=== PATIENT | female | born 1975 | race Caucasian/White ===

== ENCOUNTER 2023-02-10 18:09 | Emergency (ER) | payer OTHER, SELFPAY ==
[2023-02-10 18:09] VITALS: BP 181/97; PULSE 91; RESP 16; TEMP 36.4; O2SAT 97; BMI 33.5
[2023-02-10 18:31] VITALS: BP 191/94; PULSE 97; O2SAT 96
--- NOTE | 2023-02-10 18:33 | PC.NURSE ---
ER at bedside
--- NOTE | 2023-02-10 18:37 | HMH.EDGENADL ---
Discharge Plan Disposition Patient Disposition: Admitted Condition: Fair Chief Complaint: Abdominal Pain Clinical Impressions Clinical Impression: Calculous cholecystitis Discharge ED Provider: Beck Ruby General Adult HPI General Chief complaint: Abdominal Pain Stated complaint: N/V/D Time Seen by Provider: 02/10/23 18:10 Mode of Arrival: EMS Source of Information: Patient and EMS Limitations: No Limitations Description of Symptoms (Recalled from ER Triage Doc. by RN): 47 yo F presents to ED via EMS for nausea, vomitting, right sided abdominal pain. pt reports n/v began this am around 0700. pt states that abdominal pain began around 1000. History of Present Illness HPI narrative: This is a 47-year-old white female with history of gallbladder disease who presents with right upper quadrant pain radiating through the back that began this morning. The pain was accompanied by nausea and vomiting no fevers or chills no diarrhea no chest pain or shortness of breath. Patient states it feels like one of her gallbladder attacks. Related Data Allergies Allergy/AdvReac Type Severity Reaction Status Date / Time bupropion [From Wellbutrin] Allergy Verified 02/10/23 18:25 topiramate [From Topamax] Allergy Verified 02/10/23 18:25 [facility] Disclaimer: The information contained in this section may have been updated after the patient was seen, as this information can be updated by other users. Social History (Updated 02/10/23 @ 18:26 by Domingo Ness RN) Smoking Status: Current every day smoker alcohol intake: never current occupational status: unemployed Travel in the last 8 weeks: None ROS Obtained: Yes All systems reviewed & no additional complaints except as documented Skin no rash or lesions HEENT no runny nose sore throat Pulmonary no cough or shortness of breath Cardiovascular no chest pain pressure heaviness GI see HPI no dysuria pyuria hematuria Musculoskeletal no neck or back pain Endocrine no polydipsia polyuria or polyphasia Psych no SI or HI The rest of the systems were reviewed and found to be negative Physical Exam Narrative Physical exam: Skin: Warm and dry HEENT: Normocephalic atraumatic extract muscles are intact pupils are equal and reactive to light Neck: Supple nontender Lungs: Clear to auscultation Heart: Regular rate and rhythm Abdomen: NABS soft with right upper quadrant tenderness no guarding or rebound Extremities: No clubbing cyanosis or edema Neurologic: No unilateral weakness or numbness Lymphatic: No cervical or inguinal adenopathy Musculoskeletal: No tenderness of the dorsal or lumbar spine Psych: No SI or HI General General appearance: alert Respiratory Respiratory exam: Present normal lung sounds bilaterally Cardiovascular Cardiovascular exam: Present regular rate Neurological Exam Neurological exam: Present alert and oriented X3 Medical Decision Making Andrew Inquiry Pt receiving controlled substance: No Vital Signs: 02/10/23 18:09 02/10/23 18:31 Temperature 97.5 F L Temperature Source Oral Pulse Rate 97 H Pulse Rate [Left] 91 H Respiratory Rate 16 Blood Pressure 191/94 H Blood Pressure [Right Arm] 181/97 H Blood Pressure Mean 126 Blood Pressure Mean [Right Arm] 125 02 Sat by Pulse Oximetry 97 96 Oxygen Delivery Method Room Air Lab Data Lab Results 02/10/23 18:05: WBC 17.3 H, RBC 5.45 H, Hgb 16.5 H, Hct 51.4 H, MCV 94.3, MCH 30.3, MCHC 32.2, RDW 14.1, Plt Count 351, MPV 8.4, Neut % (Auto) 84.8 H, Lymph % (Auto) 11.3, [place] % (Auto) 3.1, Eos % (Auto) 0.5, Baso % (Auto) 0.3, Neut # (Auto) 14.7 H, Lymph # (Auto) 2.0, [place] # (Auto) 0.5, Eos # (Auto) 0.1, Baso # (Auto) 0.1, Total Counted 100, Neutrophils % (Manual) 88 H, Lymphocytes % (Manual) 11, Monocytes % (Manual) 1 L, Platelet Estimate Normal, RBC Morphology Normal 02/10/23 18:05: Sodium 136, Potassium 3.8, Chloride 104, Carbon Dioxide 23, Anion Gap 12.8, BUN 5 L, Creatinine 0.60, Terri
[2023-02-10 18:39] LABS: Basophils # 0.1 K/mm3 (0-0.2); Basophils % 0.3 % (0.1-2.0); Eosinophils # 0.1 K/mm3 (0.0-0.4); Eosinophils % 0.5 % (0.1-12.0); Hematocrit 51.4 % (37.0-47.0); Hemoglobin 16.5 g/dL (12.2-16.2); Lymphocytes % 11.3 % (10-50); Mean Corpuscular HGB Conc 32.2 g/dL (31.8-35.4); Mean Corpuscular Hemoglobin 30.3 pg (27.0-31.2); Mean Corpuscular Volume 94.3 fl (81-99); Mean Platelet Volume 8.4 fl (7.4-10.4); Monocytes # 0.5 K/mm3 (0.1-1.0); Monocytes % 3.1 % (1.7-9.3); Neutrophils # 14.7 K/mm3 (1.8-7.8); Neutrophils % 84.8 % (37.0-80.0); Platelet Count 351 K/mm3 (142-424); Red Blood Count 5.45 M/mm3 (4.20-5.40); Red Cell Distribution Width 14.1 % (11.5-17.5); White Blood Count 17.3 K/mm3 (4.8-10.8)
[2023-02-10 18:41] LABS: Chloride 104 mmol/L (98-107); Potassium 3.8 mmoL/L (3.5-5.1); Sodium 136 mmol/L (136-145)
[2023-02-10 18:43] LABS: Blood Urea Nitrogen 5 mg/dl (7-17); Creatinine Clearance Estimated 165 mL/min (50-200); Estimated Glomerular Filt Rate 108 ml/min (>60); GFR (African American) 131 ML/MIN (>60); MANUAL DIFFERENTIAL MANUAL DIFFERENTIAL (MANUAL DIFF)
[2023-02-10 18:44] LABS: Alanine Aminotransferase 30 U/L (12-78); Albumin Level 4.1 g/dl (3.5-5.0); Albumin/Globulin Ratio 1.1 (1.1-1.8); Alkaline Phosphatase 106 U/L (38-126); Anion Gap 12.8 mEq/L (5-15); Aspartate Amino Transferase 36 U/L (14-36); Bilirubin,Total 0.4 mg/dl (0.2-1.3); Calcium 9.3 mg/dl (8.4-10.2); Carbon Dioxide 23 mmol/L (22.0-30.0); Globulin 3.6 g/dL (1.3-3.2); Glucose 148 mg/dl (74-100); Total Protein,Serum 7.7 g/dl (6.3-8.2)
[2023-02-10 18:50] LABS: HCG Qualitative, Serum Negative (Negative)
[2023-02-10 18:51] LABS: Lipase 53 U/L (23-300)
[2023-02-10 18:58] LABS: Lymphocytes % 11 % (10-50); Monocytes % 1 % (2-9); Neutrophils % 88 % (42-76); Platelet Estimate Normal; RBC Morphology Normal; Total Cells Counted 100
--- NOTE | 2023-02-10 19:02 | CT_ITS ---
PROCEDURE INFORMATION: Exam: CT Abdomen And Pelvis With Contrast Exam date and time: 02/10/2023 7:15 PM Age: 47 years old Clinical indication: Abdominal pain; Other: Ruq; Additional info: Ruq pain that radiates to back TECHNIQUE: Imaging protocol: Computed tomography of the abdomen and pelvis with contrast. Radiation optimization: All CT scans at this facility use at least one of these dose optimization techniques: automated exposure control; mA and/or kV adjustment per patient size (includes targeted exams where dose is matched to clinical indication); or iterative reconstruction. Contrast material: ISOVUE; Contrast volume: 75 ml; Contrast route: IV; REPORTING DATA: Count of CT and Cardiac NM exams in prior 12 months: This patient has received 0 known CTs and 0 known cardiac nuclear medicine studies in the 12 months prior to the current study. COMPARISON: No relevant prior studies available. FINDINGS: Lungs: Mild scarring and atelectasis in the lower lungs. Liver: Normal. No mass. Gallbladder and bile ducts: There is a 5 mm stone in the common duct in the pancreatic head on image 45 series 3. Dilated gallbladder with multiple small gallstones. Gallbladder wall thickening. Pancreas: See Gallbladder and bile ducts finding. Spleen: Normal. No splenomegaly. Adrenal glands: Normal. No mass. Kidneys and ureters: Low attenuation renal lesions measuring up to 1.6 cm in diameter are incompletely characterized, but are likely cysts. No followup imaging is warranted. Stomach and bowel: Fatty infiltration of the colon wall is a nonspecific finding that can correlate with chronic inflammation. Appendix: Unremarkable appendix. Intraperitoneal space: Unremarkable. No free air. No significant fluid collection. Vasculature: The arteries demonstrate moderate atherosclerotic disease. Lymph nodes: Unremarkable. No enlarged lymph nodes. Urinary bladder: Unremarkable as visualized. Reproductive: Status post bilateral tubal ligation. Bones/joints: Unremarkable. No acute fracture. Soft tissues: Tiny fat containing umbilical hernia. Other findings: Stigmata of old granulomatous disease. IMPRESSION: 1. There is a 5 mm stone in the common duct in the pancreatic head on image 45 series 3. Please correlate for evidence of biliary obstruction and/or ascending cholangitis. 2. Dilated gallbladder with multiple small gallstones. Gallbladder wall thickening. Acute cholecystitis is possible in the appropriate clinical setting. 3. The arteries demonstrate moderate atherosclerotic disease. This is advanced for the patient's age. COMMENTS: Consistent with the [employer]'s Incidental Findings Committee white paper (J Am Annamaria Radiol 2018): Any incidental renal lesion less than 1 cm or classified as too small to characterize, or any incidental cystic renal lesion characterized as simple-appearing, is likely benign. No follow-up imaging is recommended for these lesions per consensus recommendations based on imaging criteria.
--- NOTE | 2023-02-10 19:36 | PC.NURSE ---
LANCE BOSTON on phone with dr ramsey
[2023-02-10 19:53] LABS: Coronavirus 19, PCR Not Detected (NotDetected); Influenza A, PCR Not Detected (NotDetected); Influenza B, PCR Not Detected (NotDetected)
[2023-02-10 20:10] VITALS: BP 187/100; PULSE 94; RESP 16; TEMP 36.4; O2SAT 97
--- NOTE | 2023-02-10 20:11 | PC.NURSE ---
pt and pt's was explained risks and consequences of signing out AMA.
== END 2023-02-10 20:12 | disposition left against medical advice (07) ==
PROVIDERS: Emergency Provider Emergency Medicine; PCP Family Medicine
DX: K80.01 Calculus of gallbladder with acute cholecystitis with obstruction (principal); F17.200 Nicotine dependence, unspecified, uncomplicated; R10.11 Right upper quadrant pain; R11.2 Nausea with vomiting, unspecified
CPT/HCPCS: 74177; 80053; 83690; 84703; 85007; 85025; 87636; 96365; 96375; 99285; C9803; J2405; J2543; Q9967; U0003; U0005

== ENCOUNTER 2023-03-07 07:56 | Inpatient (IN) | payer OTHER, SELFPAY ==
[2023-03-07] VITALS (28 sets, daily range): BP systolic 83–145; BP diastolic 46–93; PULSE 66–100; RESP 16–20; TEMP 36.4–36.8; O2SAT 91–99; BMI 35.0; BMI 29.9; BMI 38.0
--- NOTE | 2023-03-07 07:52 | PC.NURSE ---
Dr. Bass at BS
--- NOTE | 2023-03-07 07:52 | ECG_ITS ---
APPROVED REPORT Exam: Resting ECG HR:91 bpm ECG Measurements Heart Rate 91 AXES SD 162 P 69 QRSd 88 QRS 104 QT 326 T 92 QTc 374 Conclusion SINUS RHYTHM POSSIBLE LEFT ATRIAL ENLARGEMENT [-0.1mV P-WAVE IN V1/V2] RIGHT AXIS DEVIATION [QRS AXIS > 100] ST ELEVATION, CONSIDER INFERIOR INJURY [MARKED ST ELEVATION W/O NORMALLY INFLECTED T-WAVE IN II/aVF] ACUTE OR UNCONFIRMED REPORT Electronically signed by : Clinton Rodrigues MD 03/07/2023 19:23:34
--- NOTE | 2023-03-07 08:01 | PC.NURSE ---
Dr. Bass speaking with Dr Bui, Hospitalist
--- NOTE | 2023-03-07 08:05 | XR_ITS ---
PROCEDURE INFORMATION: Exam: XR Chest Exam date and time: 03/07/2023 8:07 AM Age: 47 years old Clinical indication: Shortness of breath; Patient HX: SOA, tightness w cp lt sided x 1 day, smoker, dx w copd; Additional info: Stemi TECHNIQUE: Imaging protocol: Radiologic exam of the chest. Views: 1 view. COMPARISON: CT ABDOMEN PELVIS W CON 02/10/2023 7:15 PM FINDINGS: Lungs: Relatively lucent lung in the left upper lobe consistent with emphysematous changes. Opacity in the right base may represent atelectasis or pneumonia.. Pleural spaces: Unremarkable. No pleural effusion. No pneumothorax. Heart/Mediastinum: Unremarkable. No cardiomegaly. Bones/joints: Unremarkable. IMPRESSION: 1. Relatively lucent lung in the left upper lobe consistent with emphysematous changes. 2. Opacity in the right base may represent atelectasis or pneumonia..
--- NOTE | 2023-03-07 08:06 | HMH.EDGENADL ---
Discharge Plan Disposition Patient Disposition: Admitted Condition: Serious Chief Complaint: Chest Pain Clinical Impressions Clinical Impression: ST elevation (STEMI) myocardial infarction involving right coronary artery Discharge ED Provider: Matt Bass General Adult HPI General Chief complaint: Chest Pain Stated complaint: CHEST PAIN Time Seen by Provider: 03/07/23 08:00 Mode of Arrival: EMS Source of Information: Patient and EMS Limitations: No Limitations History of Present Illness HPI narrative: This is a 47-year-old female with no relevant medical history presenting with chest pain. Patient states that she was recently discharged from the hospital after cholecystectomy on 02/11. Since that time, she has had abnormal sleep schedule. She was awake it over 0300 today, 03/07 when she had an acute burning sensation in her left substernal area. Currently 7 out of 10 and nonradiating after aspirin and nitroglycerin. Burning went to her left upper extremity, cause left upper extremity to go numb. Patient was diaphoretic, vomiting, weak and short of breath. This lasted for a handful of hours. Called her daughter who convinced her to come to the ER. EMS was called. Transported patient to the ED out of concern for STEMI. Patient received 324 mg aspirin and nitroglycerin on the way to [facility]. Related Data Allergies Allergy/AdvReac Type Severity Reaction Status Date / Time bupropion [From Wellbutrin] Allergy Verified 03/07/23 08:06 topiramate [From Topamax] Allergy Verified 03/07/23 08:06 [facility] Disclaimer: The information contained in this section may have been updated after the patient was seen, as this information can be updated by other users. Social History (Updated 02/10/23 @ 18:26 by Domingo Ness RN) Smoking Status: Current every day smoker alcohol intake: never current occupational status: unemployed Travel in the last 8 weeks: None ROS Obtained: Yes All systems reviewed & no additional complaints except as documented Physical Exam General General appearance: alert, anxious, lethargic and obtunded Head Head exam: atraumatic and normocephalic Chest Chest inspection: Present normal inspection and symmetric chest wall rise Respiratory Respiratory exam: Present normal lung sounds bilaterally and wheezes; Absent respiratory distress, stridor or accessory muscle use Cardiovascular Cardiovascular exam: Present regular rate and normal rhythm Abdominal Exam Abdominal exam: Present soft and tenderness (around incision sites, incision site bandages clean, dry, intact. No evidence of infection underlying bandages, but dressings appear old) Neurological Exam Neurological exam: Present alert, oriented X3, CN II-XII intact and normal gait; Absent motor sensory deficit Medical Decision Making Medical Records Medical records reviewed: Yes I reviewed the patient's medical records. Andrew Inquiry Pt receiving controlled substance: No Andrew was queried for this patient: No Vital Signs: 03/07/23 08:08 03/07/23 08:28 03/07/23 08:28 Temperature 97.8 F Pulse Rate 98 H 100 H Pulse Rate [Right Brachial] 100 H Respiratory Rate 20 20 Blood Pressure 143/91 H Blood Pressure [Left Arm] Blood Pressure [Right Arm] 142/93 H Blood Pressure Mean [Left Arm] Blood Pressure Mean [Right Arm] 109 Blood Pressure Source Automatic Cuff Blood Pressure Source [Left Arm] Blood Pressure Source [Right Arm] Automatic Cuff Blood Pressure Position Sitting Blood Pressure Position [Left Arm] Blood Pressure Position [Right Arm] Sitting 02 Sat by Pulse Oximetry 96 Oxygen Delivery Method Room Air Room Air Oxygen Flow Rate (LPM) 03/07/23 09:00 Temperature Pulse Rate 67 Pulse Rate [Right Brachial] 68 Respiratory Rate 18 Blood Pressure Blood Pressure [Left Arm] 83/46 L Blood Pressure [Right Arm] Blood Pressure Mean [Left Arm] 58 Blood Pressure Mean [Ri
--- NOTE | 2023-03-07 08:18 | IR_ITS ---
APPROVED REPORT Patient Location: Emergent Investigation Specialist: MARGO Oliver RT (R) PROCEDURES Selective coronary angiogram Mechanical thrombectomy to the right coronary Drug-eluting stent deployment to the mid and distal dominant right coronary INDICATION Acute inferolateral ST elevation myocardial infarction, Large thrombus burden, Coronary artery disease Informed consent was obtained prior to the procedure. COMPLICATIONS None Estimated Blood Loss: Less than10 mls TECHNIQUE One percent lidocaine used to anesthetize the right anterior aspect of the wrist. The right radial artery was accessed via the Seldinger technique. A 6 [place] sheath was placed in the right radial artery. 150 mg magnesium sulfate, 800 mcg of nitroglycerin, 1mg Lidocaine and 5000 U Heparin were given through the arterial sheath. The papa catheter was also used to perform selective coronary angiography. Guide catheter was placed in the right coronary artery which demonstrated occluded right coronary artery. A Choice PT extra-support wire was placed distally and a penumbra mechanical thrombectomy catheter was advanced and a large thrombus was aspirated. This restored KODY-3 flow. A 3.5 x 38 mm [place] frontier stent was placed in the mid to distal right coronary artery at 14 [place]. An additional 3 mm x 15 mm [place] frontier stent was placed distal to the for stent yet still overlapping the stent and deployed at 18 [place]. The balloon was brought back and deployed at 24 [place] to post dilate. At the end of the procedure left coronary artery angiography was performed. The apparatus was removed the sheath was removed good hemostasis was achieved using TR banding patient was transferred to the postop putting in stable condition ANGIOGRAPHIC RESULTS The left main artery Normal The left anterior descending artery Proximally normal with mid vessel 20 to 30% stenosis The circumflex artery Small nondominant and gives rise to a small to medium sized first obtuse marginal artery 2 mm in diameter with a proximal eccentric 80 to 90% stenosis The right coronary artery Large dominant vessel and initially occluded in the proximal to mid segment. Following mechanical thrombectomy and stenting the right coronary was widely patent with inline flow into the distal segment. Distal to the stent there is a 20% stenosis transitioning into the posterior descending artery. The DAUGHERTY ventriculogram reveals Not performed The left ventricular end-diastolic pressure Not measured IMPRESSION Acute ST elevation myocardial infarction involving the proximal to mid dominant right coronary artery with successful mechanical thrombectomy followed by drug-eluting stenting to the proximal mid and distal right coronary contiguous manner Persistent severe stenosis in a small to moderate sized 2 mm obtuse marginal artery PLAN 1. Brilinta 90 twice daily plus aspirin 81 mg daily 2. LDL goal of 55 to be achieved with high intensity statin 3. Supportive care 4. Avoidance of tobacco products 5. Continuous telemetry monitoring for at least the next 48 hours 6. Echocardiogram Thursday 7. QUIQUE inhibitors and beta-blockers once hemodynamically stable 8. At this time I would like to treat the obtuse marginal artery medically. There are no plans to revascularize this vessel and less patient develops recurrent angina pectoris Electronically signed by : Mayito Downey MD 03/07/2023 09:07:38
[2023-03-07 08:20] LABS: Basophils % 0.3 % (0.1-2.0); Eosinophils # 0.1 K/mm3 (0.0-0.4); Eosinophils % 0.8 % (0.1-12.0); Hematocrit 50.5 % (37.0-47.0); Lymphocytes # 2.1 K/mm3 (0.7-4.5); Lymphocytes % 15.1 % (10-50); Mean Corpuscular HGB Conc 31.7 g/dL (31.8-35.4); Mean Corpuscular Hemoglobin 29.8 pg (27.0-31.2); Mean Corpuscular Volume 93.9 fl (81-99); Mean Platelet Volume 8.1 fl (7.4-10.4); Monocytes # 0.6 K/mm3 (0.1-1.0); Monocytes % 4.3 % (1.7-9.3); Neutrophils % 79.5 % (37.0-80.0); Platelet Count 356 K/mm3 (142-424); Red Blood Count 5.38 M/mm3 (4.20-5.40); Red Cell Distribution Width 13.8 % (11.5-17.5); White Blood Count 13.9 K/mm3 (4.8-10.8)
--- NOTE | 2023-03-07 08:36 | EXP.HP ---
History of Present Illness *Admission Date: 03/07/23 *Reason for visit:: Chest pain *History of present illness: Ms. Phelps is a 47-year-old female with chronic back pain, obesity, daily smoker, with recent gallbladder removal 3 weeks ago who presented to the ER with onset of chest pain this morning. Patient states that she was recently discharged from the hospital after cholecystectomy on 02/11. Since then she has noticed difficulty with her bowels, increased loose stool. Also not sleeping regularly. States she woke up this morning when she noted a burning sensation in her chest. [place] like sand in her chest is how she states it. Ended up calling EMS who had concerning findings on EKG. They brought her to the ER under STEMI alert. Patient states the pain radiated to her left arm with some intermittent numbness. Pain came on at rest, not with exertion. No previous episodes like this she reports. On arrival to the ER she was diaphoretic. Had some vomiting and weakness at home prior to coming in. Called family convinced her to come to the hospital with EMS. During transport to the hospital she received 324 mg of aspirin and nitroglycerin. On arrival to the ER she was loaded with Brilinta. [employer] Metal Car Operator was activated and patient was taken for emergent PCI On arrival to the floor, her parents are with her at bedside. Discussed case with cardiology, patient had thrombus in the RCA. Clot was removed and 2 stents were deployed. At this time she is stable with resolution of her chest pain. On room air. Tracelet on right radial insertion site. [facility] Disclaimer: The information contained in this section may have been updated after the patient was seen, as this information can be updated by other users. Medical History Anxiety Cholecystitis GERD (gastroesophageal reflux disease) HLD (hyperlipidemia) Migraine Pain Pancreatitis Surgical History History of ERCP S/P Botox injection Family History No significant family history Social History Smoking Status: Current every day smoker alcohol intake: never current occupational status: unemployed Travel in the last 8 weeks: None Review of Systems Review of Systems Review of systems (narrative): 14 point review of systems performed, pertinent positives and negatives as per HPI Meds Home Medications and Allergies Home Medications Medication Instructions Recorded Confirmed Type diazepam 5 mg tablet 5 mg PO TID PRN Anxiety 03/07/23 03/07/23 History hydrocodone 7.5 mg-acetaminophen 1 tab PO Q8H PRN Pain 03/07/23 03/07/23 History 325 mg tablet omeprazole 40 mg capsule,delayed 40 mg PO DAILY GERD 03/07/23 03/07/23 History release New Prescriptions to Start Prescriptions: Allergies Allergy/AdvReac Type Severity Reaction Status Date / Time bupropion [From Wellbutrin] Allergy Verified 03/07/23 08:06 topiramate [From Topamax] Allergy Verified 03/07/23 08:06 Exam Data for Last 24 hours Vital signs and Labs for Last 24 Hours: Temp Pulse Resp BP Pulse Ox O2 Del Method 97.8 F 100 H 20 143/91 H 96 Room Air 03/07/23 08:28 03/07/23 08:28 03/07/23 08:28 03/07/23 08:28 03/07/23 08:08 03/07/23 08:28 I & O for Last 24 hours: Intake & Output 03/04/23 03/05/23 03/06/23 03/07/23 23:59 23:59 23:59 23:59 Weight 81.647 kg Constitutional Constitutional: no acute distress and obese *Routine HEENT Exam Head: Present normocephalic Eye: Present EOMI and PERRL ENT: Present mucous membranes moist Comments: Bilateral xanthelasmas *Routine Neck Exam Neck: Present supple; Absent lymphadenopathy *Routine Respiratory Exam Respiratory: Present CTA bilaterally; Absent rhonchi, wheezes or crackles *Routine Cardiovascular Exam Cardiovascul
[2023-03-07 08:47] LABS: Alanine Aminotransferase 37 U/L (12-78); Albumin Level 4.2 g/dl (3.5-5.0); Albumin/Globulin Ratio 1.2 (1.1-1.8); Alkaline Phosphatase 133 U/L (38-126); Anion Gap 14.4 mEq/L (5-15); Aspartate Amino Transferase 50 U/L (14-36); Bilirubin,Total 0.3 mg/dl (0.2-1.3); Blood Urea Nitrogen 3 mg/dl (7-17); Calcium 8.9 mg/dl (8.4-10.2); Carbon Dioxide 22 mmol/L (22.0-30.0); Chloride 105 mmol/L (98-107); Creatinine Clearance Estimated 131 mL/min (50-200); Estimated Glomerular Filt Rate 90 ml/min (>60); GFR (African American) 109 ML/MIN (>60); Globulin 3.6 g/dL (1.3-3.2); Glucose 185 mg/dl (74-100); HDL Cholesterol 37 mg/dl (40-60); Potassium 3.4 mmoL/L (3.5-5.1); Sodium 138 mmol/L (136-145); Total Protein,Serum 7.8 g/dl (6.3-8.2); Triglycerides 332 mg/dl (30-150); VLDL Cholesterol 66 mg/dL (0-40)
[2023-03-07 08:53] LABS: Chol/HDL Ratio 8.3 (1-3.5); Cholesterol 306 mg/dl (140-200)
[2023-03-07 08:58] LABS: Direct LDL Cholesterol 195.56 mg/dL (100-129)
[2023-03-07 09:01] LABS: Troponin I 0.08 ng/ml (0.00-0.034)
[2023-03-07 09:10] LABS: CATHL Activated Clotting Time 307 SEC (74-125)
--- NOTE | 2023-03-07 09:30 | PC.NURSE ---
arrived to floor by stretcher from lab aid
[2023-03-07 10:06] LABS: Coronavirus 19, PCR Not Detected (NotDetected); Influenza A, PCR Not Detected (NotDetected); Influenza B, PCR Not Detected (NotDetected)
--- NOTE | 2023-03-07 11:19 | PC.NURSE ---
Patient admitted to stepdown per Dr Bui, prior to arrival on unit.
--- NOTE | 2023-03-07 11:36 | PC.NURSE ---
Addendum entered by Gricel Cordova RN 03/07/23 13:18: 1108 called MD again. reported critical lab value Trop 13.60. no new orders, no need to continue drawing troponin on pt. orders cancelled by lab. Original Note: 1135 critical lab value received from lab. Trop 13.60. results repeated and verified back. 1136 Called to report critical lab value and ask if MD wants to continue with ordered troponin. MD unavailable at this time. message left with Nurse Delaney Stanford
[2023-03-07 11:50] LABS: Thyroid Stimulating Hormone 0.94 uIU/mL (0.465-4.68)
[2023-03-07 12:38] LABS: Hemoglobin A1C 5.6 % (4.0-6.0)
--- NOTE | 2023-03-07 16:30 | PC.NURSE ---
[address] Bui face to face that pt is requesting stool softener. pt states that she takes med daily and has not had it this day.
--- NOTE | 2023-03-07 16:47 | PC.NURSE ---
Since arrival to the unit following Stemi/heart cath pt has had multiple and frequent episode of ectopy/PVC and VTACH. Dr Bui is aware and was notified frequently. pt also had short period (less than 10 seconds) where heart rate increased from 70's to 180's while she was sleeping. no stimulation noted, pt also denies being awoken or aware of episode. ectopy is believed to be reperfusion per dr Bui. orders from MD are to continue to monitor pt on telemetry.
[2023-03-08] VITALS (15 sets, daily range): BP systolic 95–150; BP diastolic 66–92; PULSE 70–92; RESP 15–23; TEMP 36.4–36.8; O2SAT 88–96; BMI 37.5
[2023-03-08 07:29] LABS: Basophils # 0.1 K/mm3 (0-0.2); Basophils % 0.7 % (0.1-2.0); Eosinophils # 0.4 K/mm3 (0.0-0.4); Eosinophils % 2.9 % (0.1-12.0); Hematocrit 46.2 % (37.0-47.0); Hemoglobin 14.7 g/dL (12.2-16.2); Lymphocytes # 3.8 K/mm3 (0.7-4.5); Lymphocytes % 27.7 % (10-50); Mean Corpuscular HGB Conc 31.9 g/dL (31.8-35.4); Mean Corpuscular Hemoglobin 30.1 pg (27.0-31.2); Mean Corpuscular Volume 94.2 fl (81-99); Mean Platelet Volume 8.4 fl (7.4-10.4); Monocytes # 0.9 K/mm3 (0.1-1.0); Monocytes % 6.4 % (1.7-9.3); Neutrophils # 8.7 K/mm3 (1.8-7.8); Neutrophils % 62.4 % (37.0-80.0); Platelet Count 278 K/mm3 (142-424); Red Cell Distribution Width 14.2 % (11.5-17.5); White Blood Count 13.9 K/mm3 (4.8-10.8)
[2023-03-08 07:42] LABS: Alanine Aminotransferase 47 U/L (12-78); Albumin Level 3.4 g/dl (3.5-5.0); Albumin/Globulin Ratio 1.1 (1.1-1.8); Alkaline Phosphatase 92 U/L (38-126); Anion Gap 7.5 mEq/L (5-15); Aspartate Amino Transferase 184 U/L (14-36); Bilirubin,Total 0.5 mg/dl (0.2-1.3); Blood Urea Nitrogen 4 mg/dl (7-17); Calcium 8.6 mg/dl (8.4-10.2); Carbon Dioxide 24 mmol/L (22.0-30.0); Chloride 110 mmol/L (98-107); Creatinine Clearance Estimated 187 mL/min (50-200); Estimated Glomerular Filt Rate 108 ml/min (>60); GFR (African American) 131 ML/MIN (>60); Glucose 115 mg/dl (74-100); Potassium 3.5 mmoL/L (3.5-5.1); Sodium 138 mmol/L (136-145); Total Protein,Serum 6.4 g/dl (6.3-8.2)
--- NOTE | 2023-03-08 07:42 | EXP.ACUTE.PN ---
Subjective *Date: 03/08/23 *Time: 07:42 Interval history: Patient had a few short runs of V. tach overnight. Remains asymptomatic. No anginal pain. Having some mild back pain. Has not had a bowel movement since admission. Would like additional stool softener. Stable on room air. Blood pressure well controlled. Eating breakfast on exam. Medical Exam Vital signs and Labs for Last 24 Hours: Vital Signs Temp Pulse Pulse Resp BP BP BP 03/08/23 06:36 03/08/23 06:00 72 19 128/91 H 03/08/23 05:00 03/08/23 04:00 70 03/08/23 04:00 98.1 F 81 17 117/82 03/08/23 02:47 71 03/08/23 02:39 03/08/23 02:00 77 15 95/66 L 03/08/23 00:00 90 03/08/23 00:56 70 03/08/23 00:55 03/08/23 00:00 98.2 F 89 23 101/69 L 03/07/23 23:00 03/07/23 20:00 03/07/23 22:00 72 20 117/80 03/07/23 21:00 03/07/23 20:00 98.2 F 85 20 119/84 03/07/23 19:00 90 20 97/59 L 03/07/23 19:00 03/07/23 18:00 92 H 18 113/77 03/07/23 17:00 03/07/23 15:40 72 03/07/23 16:00 72 18 113/92 H 03/07/23 16:00 90 03/07/23 15:27 97.6 F 03/07/23 15:16 03/07/23 15:15 73 18 117/89 03/07/23 14:15 66 16 112/87 03/07/23 14:17 80 03/07/23 13:00 03/07/23 13:15 67 16 119/62 03/07/23 09:39 80 03/07/23 12:15 93 H 18 104/86 L 03/07/23 11:45 81 16 145/85 H 03/07/23 11:15 78 16 130/88 03/07/23 11:15 78 18 130/88 03/07/23 11:16 97.5 F L 03/07/23 11:00 03/07/23 10:45 81 16 131/87 03/07/23 10:15 84 18 124/84 03/07/23 10:00 81 18 118/80 03/07/23 09:45 75 18 111/82 03/07/23 09:30 76 16 103/63 L 03/07/23 09:40 68 03/07/23 09:45 03/07/23 09:15 74 17 105/69 L 03/07/23 09:10 75 18 97/63 L 03/07/23 09:05 78 18 95/59 L 03/07/23 09:00 67 68 18 83/46 L 03/07/23 08:28 100 H 03/07/23 08:28 97.8 F 98 H 20 143/91 H 03/07/23 08:08 100 H 20 142/93 H Pulse Ox O2 Del Method O2 Flow Rate 03/08/23 06:36 Room Air 03/08/23 06:00 95 Room Air 03/08/23 05:00 Room Air 03/08/23 04:00 03/08/23 04:00 94 L Room Air 03/08/23 02:47 92 L Room Air 03/08/23 02:39 Room Air 03/08/23 02:00 93 L Room Air 03/08/23 00:00 03/08/23 00:56 03/08/23 00:55 Room Air 03/08/23 00:00 92 L Room Air 03/07/23 23:00 Room Air 03/07/23 20:00 94 L Room Air 03/07/23 22:00 94 L Room Air 03/07/23 21:00 Room Air 03/07/23 20:00 93 L Room Air 03/07/23 19:00 96 Room Air 03/07/23 19:00 Room Air 03/07/23 18:00 94 L Room Air 03/07/23 17:00 Room Air 03/07/23 15:40 92 L Room Air 03/07/23 16:00 95 Room Air 03/07/23 16:00 03/07/23 15:27 03/07/23 15:16 Room Air 03/07/23 15:15 91 L Room Air 03/07/23 14:15 95 Room Air 03/07/23 14:17 03/07/23 13:00 Room Air 03/07/23 13:15 95 Room Air 03/07/23 09:39 03/07/23 12:15 99 Room Air 03/07/23 11:45 97 Room Air 03/07/23 11:15 95 Room Air 03/07/23 11:15 95 Room Air 03/07/23 11:16 03/07/23 11:00 Room Air 03/07/23 10:45 95 Room Air 03/07/23 10:15 96 Room Air 03/07/23 10:00 97 Room Air 03/07/23 09:45 93 L Room Air 03/07/23 09:30 93 L Room Air 03/07/23 09:40 91 L Room Air 03/07/23 09:45 Room Air 03/07/23 09:15 98 Simple Mask 6 03/07/23 09:10 97 Simple Mask 6 03/07/23 09:05 98 Simple Mask 6 03/07/23 09:00 97 Simple Mask 6 03/07/23 08:28 03/07/23 08:28 Room Air 03/07/23 08:08 96 Room Air Intake and Output 03/07/23 03/07/23 03/08/23 15:59 23:59 07:59 Intake Total 360 / 600 240 / 600 Output Total 900 / 1100 200 / 1100 0 / 0 Balance -540 / -500 40 / -500 0 / 0 Intake: Intake, Oral Amount 360 / 600 240 / 600 Output: Output, Ur
[2023-03-09] VITALS: BP 114/87; PULSE 80; PULSE 84; RESP 16; TEMP 36.9; O2SAT 94
[2023-03-09 04:00] VITALS: BP 131/82; PULSE 70; PULSE 82; RESP 17; TEMP 36.6; O2SAT 92; BMI 38.8
[2023-03-09 05:55] LABS: Basophils # 0.1 K/mm3 (0-0.2); Basophils % 0.5 % (0.1-2.0); Eosinophils # 0.5 K/mm3 (0.0-0.4); Eosinophils % 4.1 % (0.1-12.0); Hematocrit 44.2 % (37.0-47.0); Hemoglobin 14.2 g/dL (12.2-16.2); Lymphocytes # 3.5 K/mm3 (0.7-4.5); Lymphocytes % 29.1 % (10-50); Mean Corpuscular HGB Conc 32.2 g/dL (31.8-35.4); Mean Corpuscular Volume 93.3 fl (81-99); Monocytes # 0.7 K/mm3 (0.1-1.0); Monocytes % 5.9 % (1.7-9.3); Neutrophils # 7.2 K/mm3 (1.8-7.8); Neutrophils % 60.5 % (37.0-80.0); Platelet Count 265 K/mm3 (142-424); Red Blood Count 4.74 M/mm3 (4.20-5.40); Red Cell Distribution Width 14.2 % (11.5-17.5)
[2023-03-09 06:05] LABS: Alanine Aminotransferase 35 U/L (12-78); Albumin Level 3.4 g/dl (3.5-5.0); Albumin/Globulin Ratio 1.1 (1.1-1.8); Alkaline Phosphatase 86 U/L (38-126); Anion Gap 7.5 mEq/L (5-15); Aspartate Amino Transferase 80 U/L (14-36); Bilirubin,Total 0.5 mg/dl (0.2-1.3); Blood Urea Nitrogen 6 mg/dl (7-17); Calcium 8.8 mg/dl (8.4-10.2); Carbon Dioxide 26 mmol/L (22.0-30.0); Chloride 108 mmol/L (98-107); Creatinine Clearance Estimated 193 mL/min (50-200); Estimated Glomerular Filt Rate 108 ml/min (>60); GFR (African American) 131 ML/MIN (>60); Glucose 95 mg/dl (74-100); Potassium 3.5 mmoL/L (3.5-5.1); Sodium 138 mmol/L (136-145); Total Protein,Serum 6.4 g/dl (6.3-8.2)
--- NOTE | 2023-03-09 06:41 | PC.NURSE ---
Pt has requested PRN pain medication 2x t/o shift. NSR on tele. No ectopy noted.
--- NOTE | 2023-03-09 07:23 | EXP.DC.SUM ---
General Admission date:: 03/07/23 Discharge date: 03/09/23 HPI HPI HPI: Ms. Phelps is a 47-year-old female with chronic back pain, obesity, daily smoker, with recent gallbladder removal 3 weeks ago who presented to the ER with onset of chest pain this morning. Patient states that she was recently discharged from the hospital after cholecystectomy on 02/11. Since then she has noticed difficulty with her bowels, increased loose stool. Also not sleeping regularly. States she woke up this morning when she noted a burning sensation in her chest. [place] like sand in her chest is how she states it. Ended up calling EMS who had concerning findings on EKG. They brought her to the ER under STEMI alert. Patient states the pain radiated to her left arm with some intermittent numbness. Pain came on at rest, not with exertion. No previous episodes like this she reports. On arrival to the ER she was diaphoretic. Had some vomiting and weakness at home prior to coming in. Called family convinced her to come to the hospital with EMS. During transport to the hospital she received 324 mg of aspirin and nitroglycerin. On arrival to the ER she was loaded with Brilinta. Specification Writer was activated and patient was taken for emergent PCI On arrival to the floor, her parents are with her at bedside. Discussed case with cardiology, patient had thrombus in the RCA. Clot was removed and 2 stents were deployed. At this time she is stable with resolution of her chest pain. On room air. Tracelet on right radial insertion site. Hospital Course Hospital Course Hospital Course: 47-year-old female who presented to the ER via EMS due to chest pain. Found to have STEMI. Taken to the [facility] with intervention. Stable for 48 hours after heart cath on telemetry. No angina. Stable for discharge home. Problems addressed as follows: STEMI CAD Hyperlipidemia -Admitted for STEMI. Cardiology took patient to the Specification [facility] from the ER. Had ST elevations in anterior leads. Found to have thrombus in the RCA, 2 stents deployed. Other minor small vessel disease, see full report for details. Monitored for 48 hours due to risk for tachyarrhythmias. Initiated on aspirin 81 mg daily, Brilinta 90 mg twice daily. Continue high intensity statin with Lipitor 40 mg daily, goal LDL less than 55. Echo obtained with preserved EF. Initiated on lisinopril 5 mg daily prior to discharge along with carvedilol 3.125 mg twice daily. Close follow-up with cardiology to monitor tolerance and response. - Of note, TSH 0.94 ; A1c 5.6 Chronic back pain Chronic opiate therapy -Continued home regimen 7.5 mg hydrocodone. History of GERD, continue pantoprazole nightly 40 mg while admitted. Obesity complicates all aspects of her care Of note, patient just had her gallbladder removed 3 weeks ago. Incisions clean dry and intact. No significant abdominal pain or elevation in liver enzymes. Tobacco use disorder: Nicotine replacement therapy requested. Counseled on smoking cessation and risks and benefits to her health. Discharged home on nicotine patches 21 mg daily. Stable for discharge with close follow-up with cardiology and PCP. Exam Data for Last 24 hours Vital signs and Labs for Last 24 Hours: Temp Pulse Resp BP Pulse Ox O2 Del Method O2 Flow Rate 97.8 F 82 17 131/82 92 L Room Air 6 03/09/23 04:00 03/09/23 04:00 03/09/23 04:00 03/09/23 04:00 03/09/23 04:00 03/09/23 06:42 03/07/23 09:15 Laboratory Results - last 24 hr 03/08/23 06:50: WBC 13.9 H, RBC 4.90, Hgb 14.7, Hct 46.2, MCV 94.2, MCH 30.1, MCHC 31.9, RDW 14.2, Plt Count 278, MPV 8.4, Neut % (Auto) 62.4, Lymph % (Auto) 27.7, Cache % (Auto) 6.4, Eos % (Auto) 2.9, Baso % (Auto) 0.7, Neut # (Auto) 8.7 H, Lymph # (Auto) 3.8, Cache # (Auto) 0.9, Eos # (Auto) 0.4, Baso # (Auto) 0.1, Sodium 138, Potassium 3.5, Chloride 110 H, Carbon Dioxide 24, Anion Gap 7.5, BUN 4 L D, Creatinine 0.60, Estimated Creat Clear 187, Estimated GFR
[2023-03-09 08:00] VITALS: BP 105/71; PULSE 80; RESP 20; TEMP 36.4; O2SAT 94
--- NOTE | 2023-03-09 08:50 | PC.NURSE ---
Consulted MD about pt's SOB. OK to give Fahad.
--- NOTE | 2023-03-09 09:57 | HMH.PHAINT1 ---
Pharmacy Intervention Comments: Patient's discharge medications discussed and reviewed with patient -Aspirin (blood thinner, may cause easier bruising and bleeding) -Carvedilol (Blood pressure. may cause fatigue, watch standing up/moving too fast) -Atorvastatin (holesterol, may cause muscle pain/cramping) - Lisinopril (Blood pressure. may cause fatigue, watch standing up/moving too fast) - Nicotine Patch (Nicotine Cessation, Watch how you touch and where it is placed, clean spot used thoroughly) - Ticagrelor (blood thinner, may cause easier bruising and bleeding) Patient had no further questions at this time. -Juancarlos Mathis, Pharm Student
--- NOTE | 2023-03-09 11:06 | EXP.CARD.CON ---
History of Present Illness History of Present Illness Consult date: 03/09/23 Requesting physician: Esequiel Bui Consult reason: chest pain Chief complaint: Chest pain History of present illness: 47-year-old white female with past medical history of GERD, anxiety, hyperlipidemia, coronary artery disease presented to emergency department 03/07/2023 for STEMI. Patient was taken to [facility] and received successful mechanical thrombectomy followed by drug-eluting stenting to the proximal mid and distal RCA. Persistent severe stenosis in a small to moderate-sized 2 mm obtuse marginal artery was noted. Patient was admitted for observation status post STEMI. Blood pressure was elevated during hospital stay and patient was started on lisinopril 2.5 mg after a one-time dose of captopril 6.25 mg p.o. Blood pressure is now stable. Preliminary echo report shows a normal ejection fraction. Patient denies chest pain or shortness of breath reports feeling good. [facility] Disclaimer: The information contained in this section may have been updated after the patient was seen, as this information can be updated by other users. Medical History Anxiety Cholecystitis GERD (gastroesophageal reflux disease) HLD (hyperlipidemia) Migraine Pain Pancreatitis Surgical History History of ERCP S/P Botox injection Family History No significant family history Social History Smoking Status: Current every day smoker alcohol intake: never current occupational status: unemployed Travel in the last 8 weeks: None Review of Systems *Cardiovascular Cardiovascular: Reports chest pain and Reports dyspnea *Respiratory Respiratory: Reports dyspnea Exam Data for Last 24 hours Vital signs and Labs for Last 24 Hours: Temp Pulse Resp BP Pulse Ox O2 Del Method O2 Flow Rate 97.5 F L 80 20 105/71 L 94 L Room Air 6 03/09/23 08:00 03/09/23 08:00 03/09/23 08:00 03/09/23 08:00 03/09/23 08:00 03/09/23 10:00 03/07/23 09:15 Laboratory Results - last 24 hr 03/09/23 05:18: WBC 12.0 H, RBC 4.74, Hgb 14.2, Hct 44.2, MCV 93.3, MCH 30.0, MCHC 32.2, RDW 14.2, Plt Count 265, MPV 8.0, Neut % (Auto) 60.5, Lymph % (Auto) 29.1, Dickenson % (Auto) 5.9, Eos % (Auto) 4.1, Baso % (Auto) 0.5, Neut # (Auto) 7.2, Lymph # (Auto) 3.5, Dickenson # (Auto) 0.7, Eos # (Auto) 0.5 H, Baso # (Auto) 0.1, Sodium 138, Potassium 3.5, Chloride 108 H, Carbon Dioxide 26, Anion Gap 7.5, BUN 6 L D, Creatinine 0.60, Estimated Creat Clear 193, Estimated GFR 108, Est GFR ( Amer) 131, Glucose 95, Calcium 8.8, Total Bilirubin 0.5, AST 80 H D, ALT 35 D, Alkaline Phosphatase 86, Total Protein 6.4, Albumin 3.4 L, Globulin 3.0, Albumin/Globulin Ratio 1.1 I & O for Last 24 hours: Intake & Output 03/06/23 03/07/23 03/08/23 03/09/23 23:59 23:59 23:59 23:59 Intake Total 600 / 600 240 / 240 540 / 540 Output Total 1100 / 1100 402 / 402 350 / 350 Balance -500 / -500 -162 / -162 190 / 190 Weight 221 lb 7 oz 219 lb 15.988 oz 227 lb 9.6 oz Constitutional Constitutional: no acute distress *Routine Respiratory Exam Respiratory: Present CTA bilaterally and symmetric chest movement *Routine Cardiovascular Exam Cardiovascular: Present RRR, Normal S1 and Normal S2 *Routine Abdominal Exam Abdominal: Present soft and normoactive bowel sounds; Absent tenderness *Routine Extremities Exam Extremities: Present full ROM and normal capillary refill; Absent edema Comments: Right radial access-dressing dry, no obvious swelling redness bruising noted *Routine Skin Exam Skin: Present intact, dry and warm Detailed Neck Exam: Thyroids Thyroid: Absent bruit Meds Home Medications and Allergies Home Medications Medication Instructions Recorded Confirmed Type diazepam 5 mg tablet 5 mg PO TIDP PRN Anxiet
--- NOTE | 2023-03-10 13:02 | CARE MANAGER ---
Spoke with patient to discuss recent discharge. Patient stated that she is doing well, just soa r/t rogersilinta. She also stated that she has some shoulder pain (reported to MD prior to discharge, per patient), and felt some discomfort in her chest x 1 that was relieved with laying down. I educated on the importance of seeking medical attention if she feels like she is having chest pain. She is aware of f/u appt scheduled at discharge and has started all new medication.
== END 2023-03-09 11:26 | disposition home or self-care (01) | DRG 247 ==
LOC: CATHLAB 08:43 → ER 08:43 → 2ND 08:45
PROVIDERS: Internal Medicine; Admitting Provider Internal Medicine Adolescent Medicine; Emergency Provider Emergency Medicine; Visit Provider Internal Medicine Adolescent Medicine
PROC: 027034Z Dilation of Coronary Artery, One Artery with Drug-eluting Intraluminal Device, Percutaneous Approach (ICD-10-PCS; principal; 2023-03-07 20:00)
DX: I21.11 ST elevation (STEMI) myocardial infarction involving right coronary artery (principal); F17.200 Nicotine dependence, unspecified, uncomplicated; I25.10 Atherosclerotic heart disease of native coronary artery without angina pectoris; K59.00 Constipation, unspecified; E78.2 Mixed hyperlipidemia; M54.9 Dorsalgia, unspecified; K21.9 Gastro-esophageal reflux disease without esophagitis; F41.9 Anxiety disorder, unspecified; E66.9 Obesity, unspecified; Z68.38 Body mass index [BMI] 38.0-38.9, adult; I10 Essential (primary) hypertension
CPT/HCPCS: 36415; 71045; 80053; 80061; 83036; 83735; 84443; 84484; 85025; 85347; 87636; 92941; 92973; 93005; 93306; 93454; 99152; 99285; C1725; C1769; C1876; C9606; J1644; J2405; Q9967

== ENCOUNTER → 2023-03-16 08:41 | Outpatient (CLI) | payer OTHER, SELFPAY ==
[2023-03-16 09:09] LABS: Basophils % 0.3 % (0.1-2.0); Eosinophils # 0.5 K/mm3 (0.0-0.4); Hematocrit 46.4 % (37.0-47.0); Lymphocytes # 2.1 K/mm3 (0.7-4.5); Lymphocytes % 16.3 % (10-50); Mean Corpuscular HGB Conc 32.4 g/dL (31.8-35.4); Mean Corpuscular Hemoglobin 29.5 pg (27.0-31.2); Mean Corpuscular Volume 91.1 fl (81-99); Mean Platelet Volume 8.4 fl (7.4-10.4); Monocytes # 0.6 K/mm3 (0.1-1.0); Monocytes % 4.4 % (1.7-9.3); Neutrophils # 9.7 K/mm3 (1.8-7.8); Platelet Count 302 K/mm3 (142-424); Red Blood Count 5.09 M/mm3 (4.20-5.40); Red Cell Distribution Width 13.8 % (11.5-17.5); White Blood Count 12.9 K/mm3 (4.8-10.8)
[2023-03-16 10:19] LABS: Anion Gap 15.3 mEq/L (5-15); Blood Urea Nitrogen 9 mg/dl (7-17); Calcium 9.5 mg/dl (8.4-10.2); Carbon Dioxide 16 mmol/L (22.0-30.0); Chloride 112 mmol/L (98-107); Estimated Glomerular Filt Rate 108 ml/min (>60); GFR (African American) 131 ML/MIN (>60); Glucose 175 mg/dl (74-100); Potassium 4.3 mmoL/L (3.5-5.1); Sodium 139 mmol/L (136-145)
== END ==
PROVIDERS: PCP Family Medicine; Visit Provider Internal Medicine Adolescent Medicine
DX: I25.10 Atherosclerotic heart disease of native coronary artery without angina pectoris (principal)
CPT/HCPCS: 36415; 80048; 85025

== ENCOUNTER 2023-03-31 09:51 | Outpatient (RCR) | payer OTHER, SELFPAY | END 2023-05-14 16:00 | disposition home or self-care (01) | LOC: PT 09:51 | PROVIDERS: Visit Provider Internal Medicine | DX: I25.10 Atherosclerotic heart disease of native coronary artery without angina pectoris (principal); Z98.61 Coronary angioplasty status | CPT/HCPCS: 93798 ==

== ENCOUNTER → 2023-04-27 15:09 | Outpatient (CLI) | payer OTHER, SELFPAY ==
--- NOTE | 2023-04-27 15:25 | US_ITS ---
FINAL REPORT CLINICAL HISTORY: leg pain/swelling with exertion/claudication FINDINGS: ANKLE-BRACHIAL PRESSURE INDICES Pressure indices are as follows: RIGHT LOWER EXTREMITY: Ankle-brachial pressure index: 1.0 Comments: Normal LEFT LOWER EXTREMITY: Ankle-brachial pressure index: 1.1 Comments: Normal IMPRESSION: No evidence of significant obstructive peripheral vascular disease of the lower extremities Reviewed, Interpreted and Dictated by Keith Ramírez MD Transcribed by Selene Conde Authenticated and [facility]
== END ==
PROVIDERS: PCP Family Medicine; Visit Provider Nurse Practitioner
DX: I70.213 Atherosclerosis of native arteries of extremities with intermittent claudication, bilateral legs (principal); M79.604 Pain in right leg; M79.605 Pain in left leg; M79.89 Other specified soft tissue disorders; I25.10 Atherosclerotic heart disease of native coronary artery without angina pectoris; I10 Essential (primary) hypertension; E78.5 Hyperlipidemia, unspecified; R94.31 Abnormal electrocardiogram [ECG] [EKG]; F17.200 Nicotine dependence, unspecified, uncomplicated; Z95.5 Presence of coronary angioplasty implant and graft
CPT/HCPCS: 93923

== ENCOUNTER 2023-09-02 06:20 | Outpatient (CLI) | payer OTHER, SELFPAY ==
--- NOTE | 2023-09-02 06:27 | NM_ITS ---
APPROVED REPORT Exam: Nuclear Stress Test Indication: palpitations..fatigue Patient Location: Outpatient Stress Tech: Jodi Moreno [place] Tech:MARGO Correia RT(R)(N) Ht: 5 ft 4 in Wt: 208 lbs Bra Size: 40c HR: 87 bpm BP: 113/77 mmHg BSA: 1.99 m2 TID: 0.89 BMI: 35.6 History: palpitations..fatigue Procedure: Patient received 0.4 mg of intravenous Lexiscan, resting heart rate 87 bpm, resting blood pressure 113/77 mmHg, with Lexiscan maximum heart rate achieved was 108 bpm which is 85 % of the maximum predicted heart rate and blood pressure was 123/77 mmHg. With Lexiscan, patient denied any complaint of chest pain. Cardiac Stress and Resting SPECT Images: Cardiac Stress and Resting SPECT images were obtained using technetium 99m Myoview 31.0 mCi stress and 10.20 mCi at rest. Resting and stress imaging in supine and prone positions demonstrate a medium sized, mild, reversible perfusion defect in the basal to mid inferior LV wall. Gated imaging demonstrates normal global LV systolic function. There is mild hypokinesis of the basal inferior LV wall. LVEF is calculated at 62%. Conclusion: Medium sized, mild, reversible perfusion defect in the basal to mid inferior LV wall. Findings are suggestive of reversible ischemia. Gated imaging demonstrates normal global LV systolic function. There is mild hypokinesis of the basal inferior LV wall. LVEF is calculated at 62%. Electronically signed by : Gloria Juarez MD 09/05/2023 22:48:01
--- NOTE | 2023-09-02 09:34 | CA_ITS ---
APPROVED REPORT Exam: Pharmacologic Technologist: Jodi Harris, Ht: 5 ft 4 in Wt: 218 lbs BSA: 2.03 m2 HR: 85 bpm BP: 113/77 mmHg Rhythm: NSR Medical History Medications: Lisinopril,,,,, Aspirin,,,,, Carvedilol,,,,, Protonix,,,,, Plavix,,,,, PEPcid,,,,, Diaxepam,,,,, Hydrocodone Acetaminophen,,,,, Stress Test Details Test: LEXISCAN Reason for pharmacologic stress test: changed from exercise stress test due to inability to reach target heart rate. HR Resting HR: 87 bpm Max Heart Rate (APMHR): 174 bpm Max HR Achieved: 108 bpm Target HR (85% APMHR): 148 bpm % of APMHR: 62 Recovery HR: 93 bpm BP Resting BP: 113/77 mmHg Max BP: 123/77 mmHg Recovery BP: 115.0/76.0 mmHg ECG Resting ECG: NSR, frequent PVCs in bigeminal pattern, LPFB, low QRS voltage, cannot R/O old septal NC Stress ECG: New transient T wave inversion was present Arrhythmia: PVCs Clinical Exercise duration: 04:00 min Highest Stage Achieved: Exercise capacity: 1.0 METs Stress ECG Conclusion Symptoms: SOA, head & stomach discomfort. No CP. Arrhythmias/Ectopy: Occ PVC. ST-T Changes: New transient T wave inversion was present Conclusion: ECG findings suggestive of possible ischemia after Lexiscan administration. Myoview images reported separately. Test Summary REST . . . . . . . Resting REST 01:08 . . 87 . 113/ 77 . . Stage 1 01:00 . . 104 . . . . Stage 2 01:00 . . 108 . 123/ 77 . . Stage 3 01:00 . . 103 . 119/ 79 . . Stage 4 01:00 . . 104 . 115/ 82 . Stop exercise at 04:00 RECOVERY 01:00 . . 98 . . . . RECOVERY 02:00 . . 96 . 105/ 76 . . RECOVERY 03:00 . . 93 . 115/ 76 . . RECOVERY 03:15 . . 96 . 115/ 76 . . Electronically signed by : Gloria Juarez MD 09/16/2023 04:23:59
[2023-09-02] MEDS: REGADENOSON 0.4MG/5ML SYRINGE 0.400000000000000022 MG IV (10:18)
[2023-09-02] MEDS: ISOTOPE MYOVIEW (PER STUDY) 1 DOSE IV (10:18)
[2023-09-02] MEDS: SODIUM CHLORIDE 0.9% 10ML SYR (RAD ONLY) 10 ML IV ×2 (10:18→10:19)
== END 2023-09-02 23:59 ==
PROVIDERS: PCP Family Medicine; Visit Provider Nurse Practitioner Family
DX: I11.9 Hypertensive heart disease without heart failure (principal); I21.11 ST elevation (STEMI) myocardial infarction involving right coronary artery; I25.10 Atherosclerotic heart disease of native coronary artery without angina pectoris; R07.9 Chest pain, unspecified; R12 Heartburn; Z95.5 Presence of coronary angioplasty implant and graft; Z72.0 Tobacco use
CPT/HCPCS: 78452; 93017; 93018; A9502; J2785

== ENCOUNTER 2023-09-22 09:03 | Day surgery (SDC) | payer OTHER, SELFPAY ==
[2023-09-22] VITALS (11 sets, daily range): BP systolic 95–141; BP diastolic 51–91; PULSE 69–84; RESP 16–18; TEMP 36.5; O2SAT 94–98; BMI 37.4
--- NOTE | 2023-09-22 07:14 | IR_ITS ---
APPROVED REPORT Patient Location: Outpatient Agency Sales Director: MARGO Beasley RT (R) PROCEDURES Selective coronary angiogram Drug-eluting stent deployment to the ramus intermedius Drug-eluting stent deployment to the first obtuse marginal artery INDICATION Coronary artery disease, Abnormal Myoview, Angina pectoris, Informed consent was obtained prior to the procedure. COMPLICATIONS None Estimated Blood Loss: Less than 10 ML TECHNIQUE One percent lidocaine used to anesthetize the right anterior aspect of the wrist. The right radial artery was accessed via the Seldinger technique. A 6 Azeri sheath was placed in the right radial artery. 2.5 mg of Verapamil, 800 mcg of nitroglycerin, 1mg Lidocaine and 5000 U Heparin were given through the arterial sheath. The papa catheter was also used to perform left heart catheterization and selective coronary angiogram. At the end the diagnostic angiogram therapeutic heparin was administered giving a therapeutic ACT and the guide catheter was placed in the left main artery followed by Choice PT extra-support wire down the ramus intermedius. A 2.5 x 12 mm Zion frontier stent was deployed at 16 [place] reducing the severe to critical stenosis to 0%. KODY-3 flow was present before and after the procedure. Following this an additional Choice PT extra-support wire was placed in the first obtuse marginal artery and the ramus intermedius wire has was removed. A 2.25 x 22 mm Zion frontier stent was deployed at 20 [place] reducing the stenosis. An additional 2 mm x 12 mm Zion frontier stent was placed distal to the for stent yet still overlapping it and deployed at 16 [place]. The balloon was brought back and deployed at 24 [place] at the end connection between the 2 stents to mesh the stents. Excellent angiographic results were obtained. After achieving KODY-3 flow before and after the procedure the apparatus was removed the sheath was removed and hemostasis was achieved using TR banding patient was transferred to the postop holding in stable condition ANGIOGRAPHIC RESULTS The left main artery Normal The left anterior descending artery Has mild proximal and mid vessel 10 to 20% luminal irregularities The circumflex artery Is rise to a moderate-sized ramus intermedius which has a proximal concentric 90% stenosis. The first obtuse marginal artery is moderate to large and has proximal to mid vessel 90% stenoses The right coronary artery Is a dominant vessel and has stents through the proximal and mid segment which are widely patent free of in-stent restenosis with excellent proximal distal transitioning. Distally there is a 30% smooth stenosis just proximal to the PDA and posterior lateral ventricular branch. The PDA has a mid vessel smooth 20 to 30% stenosis The DAUGHERTY ventriculogram reveals Not performed The left ventricular end-diastolic pressure 20 mmHg IMPRESSION Severe disease in the ramus intermedius and first obtuse marginal artery as described above Successful stenting of the ramus intermedius and circumflex arteries first obtuse marginal artery severe disease reduced to 0% with 3 drug-eluting stents as described above Mildly elevated elevated P PLAN 1. Dual antiplatelet therapy 2. Aggressive risk factor modification 3. LDL less than 55 to achieve that high intensity statin 4. Cardiac rehabilitation Electronically signed by : Mayito Downey MD 09/22/2023 12:20:26
[2023-09-22 09:36] LABS: Basophils # 0.1 K/mm3 (0-0.2); Basophils % 0.8 % (0.1-2.0); Eosinophils # 0.4 K/mm3 (0.0-0.4); Eosinophils % 3.3 % (0.1-12.0); Hematocrit 47.4 % (37.0-47.0); Hemoglobin 16.2 g/dL (12.2-16.2); Lymphocytes # 2.7 K/mm3 (0.7-4.5); Lymphocytes % 21.6 % (10-50); Mean Corpuscular HGB Conc 34.1 g/dL (31.8-35.4); Mean Corpuscular Hemoglobin 32.4 pg (27.0-31.2); Mean Corpuscular Volume 94.9 fl (81-99); Mean Platelet Volume 8.1 fl (7.4-10.4); Monocytes # 0.5 K/mm3 (0.1-1.0); Neutrophils # 8.7 K/mm3 (1.8-7.8); Neutrophils % 70.3 % (37.0-80.0); Platelet Count 376 K/mm3 (142-424); Red Blood Count 4.99 M/mm3 (4.20-5.40); Red Cell Distribution Width 16.1 % (11.5-17.5); White Blood Count 12.3 K/mm3 (4.8-10.8)
[2023-09-22 09:43] LABS: Chloride 110 mmol/L (98-107); Potassium 3.9 mmoL/L (3.5-5.1); Sodium 138 mmol/L (136-145)
[2023-09-22 09:46] LABS: Anion Gap 8.9 mEq/L (5-15); Blood Urea Nitrogen 6 mg/dl (7-17); Calcium 8.6 mg/dl (8.4-10.2); Carbon Dioxide 23 mmol/L (22.0-30.0); Creatinine Clearance Estimated 183 mL/min (50-200); Estimated Glomerular Filt Rate 108 ml/min (>60); GFR (African American) 130 ML/MIN (>60); Glucose 120 mg/dl (74-100)
[2023-09-22] MEDS: diphenhydrAMINE 50MG/ML VIAL 50 MG IV (11:05)
[2023-09-22] MEDS: NITROGLYCERIN 800MCG/8ML SYR (CATH LAB) 800 MCG IA ×2 (11:05→12:11)
[2023-09-22] MEDS: VERAPAMIL 2.5MG/ML 2ML VIAL 2.5 MG IV (11:05)
[2023-09-22] MEDS: LIDOCAINE 1% 10ML MDV 20 ML IJ (11:06)
[2023-09-22] MEDS: HEPARIN 1,000 UNITS/500ML NS (CATH LAB) 3000 UNIT IV (11:06)
[2023-09-22] MEDS: 0.9 % SODIUM CHLORIDE 500 ML 25 ML IV (11:06)
[2023-09-22] MEDS: MIDAZOLAM HCL 1MG/1ML 5ML VIAL 1 MG IV (12:13)
[2023-09-22] MEDS: FENTANYL 100MCG/2ML VIAL 50 MCG IV (12:14)
[2023-09-22] MEDS: HEPARIN 1,000 UNITS/ML 10ML VIAL (CATH LAB) 10000 UNIT IV (12:15)
[2023-09-22] MEDS: IOPAMIDOL-370 (76%);100ML BOTTLE 180 ML IV (13:12)
[2023-09-22 16:15] LABS: CATHL Activated Clotting Time 340 SEC (74-125)
== END 2023-09-22 15:49 | disposition home or self-care (01) ==
PROVIDERS: PCP Family Medicine; Visit Provider Internal Medicine
DX: R94.39 Abnormal result of other cardiovascular function study (principal); I25.118 Atherosclerotic heart disease of native coronary artery with other forms of angina pectoris; I10 Essential (primary) hypertension; E78.5 Hyperlipidemia, unspecified; I25.2 Old myocardial infarction; Z79.899 Other long term (current) drug therapy; Z95.5 Presence of coronary angioplasty implant and graft
CPT/HCPCS: 80048; 85025; 85347; 92928; 93458; 99152; C1725; C1760; C1769; C1876; C9600; J1644; Q9967

== ENCOUNTER 2023-09-29 12:49 | Outpatient (CLI) | payer OTHER, SELFPAY ==
[2023-09-29 14:02] LABS: Basophils # 0.1 K/mm3 (0-0.2); Eosinophils # 0.4 K/mm3 (0.0-0.4); Eosinophils % 2.9 % (0.1-12.0); Hematocrit 45.3 % (37.0-47.0); Hemoglobin 15.2 g/dL (12.2-16.2); Lymphocytes # 3.4 K/mm3 (0.7-4.5); Lymphocytes % 25.3 % (10-50); Mean Corpuscular HGB Conc 33.6 g/dL (31.8-35.4); Mean Corpuscular Hemoglobin 32.3 pg (27.0-31.2); Mean Corpuscular Volume 96.1 fl (81-99); Mean Platelet Volume 8.2 fl (7.4-10.4); Monocytes # 0.7 K/mm3 (0.1-1.0); Monocytes % 4.9 % (1.7-9.3); Neutrophils # 8.8 K/mm3 (1.8-7.8); Neutrophils % 65.9 % (37.0-80.0); Platelet Count 350 K/mm3 (142-424); Red Blood Count 4.71 M/mm3 (4.20-5.40); Red Cell Distribution Width 15.9 % (11.5-17.5); White Blood Count 13.3 K/mm3 (4.8-10.8)
[2023-09-29 14:11] LABS: Chloride 106 mmol/L (98-107)
[2023-09-29 14:12] LABS: Potassium 3.9 mmoL/L (3.5-5.1); Sodium 137 mmol/L (136-145)
[2023-09-29 14:14] LABS: Alanine Aminotransferase 20 U/L (12-78); Albumin Level 3.6 g/dl (3.5-5.0); Alkaline Phosphatase 87 U/L (38-126); Anion Gap 8.9 mEq/L (5-15); Aspartate Amino Transferase 28 U/L (14-36); Bilirubin,Direct 0.4 mg/dl (0.0-0.4); Bilirubin,Indirect 0.2 mg/dL (0.0-0.9); Bilirubin,Total 0.6 mg/dl (0.2-1.3); Bilirubin,Unconjugated 0.2 mg/dL (0.0-1.1); Blood Urea Nitrogen 3 mg/dl (7-17); Carbon Dioxide 26 mmol/L (22.0-30.0); Cholesterol 221 mg/dl (140-200); Estimated Glomerular Filt Rate 108 ml/min (>60); GFR (African American) 130 ML/MIN (>60); Total Protein,Serum 6.7 g/dl (6.3-8.2); Triglycerides 210 mg/dl (30-150); VLDL Cholesterol 42 mg/dL (0-40)
[2023-09-29 14:15] LABS: Calcium 8.8 mg/dl (8.4-10.2); Chol/HDL Ratio 6.1 (1-3.5); Glucose 98 mg/dl (74-100); HDL Cholesterol 36 mg/dl (40-60); Magnesium 2.1 mg/dl (1.6-2.3)
[2023-09-29 14:26] LABS: Direct LDL Cholesterol 132.61 mg/dL (100-129)
[2023-09-29 14:48] LABS: Thyroid Stimulating Hormone 1.27 uIU/mL (0.465-4.68)
== END 2023-09-29 23:59 ==
PROVIDERS: PCP Family Medicine; Visit Provider Physician Assistant
DX: I25.10 Atherosclerotic heart disease of native coronary artery without angina pectoris (principal); I10 Essential (primary) hypertension; E78.5 Hyperlipidemia, unspecified; H02.63 Xanthelasma of right eye, unspecified eyelid; H02.66 Xanthelasma of left eye, unspecified eyelid; K21.9 Gastro-esophageal reflux disease without esophagitis; R12 Heartburn; R94.30 Abnormal result of cardiovascular function study, unspecified; R94.31 Abnormal electrocardiogram [ECG] [EKG]; F17.200 Nicotine dependence, unspecified, uncomplicated; Z95.5 Presence of coronary angioplasty implant and graft
CPT/HCPCS: 36415; 80048; 80061; 80076; 83735; 84439; 84443; 85025

== ENCOUNTER 2023-09-30 12:37 | Outpatient (CLI) | payer OTHER, SELFPAY ==
--- NOTE | 2023-09-30 12:51 | CA_ITS ---
FINAL REPORT CLINICAL HISTORY: Pain in right wrist post heart cath 09/22/23 with right radial access. States the pain is throbbing pain up the right arm with edema to hands/fingers. CAD, HTN, smoker. Patient takes Plavix. FINDINGS: Spectral and Doppler waveform evaluations of the right wrist was performed. Spectral analysis was performed. There is no evidence of pseudoaneurysm of the right radial artery. No appreciable hematoma is identified. IMPRESSION: No evidence of pseudoaneurysm. Reviewed, Interpreted and Dictated by Jose Salomon MD Transcribed by Priscila Olivia Authenticated and [facility]
== END 2023-09-30 23:59 ==
LOC: RT 12:38
PROVIDERS: PCP Family Medicine; Visit Provider Nurse Practitioner Family
DX: M79.601 Pain in right arm (principal); I20.89 Other forms of angina pectoris; I10 Essential (primary) hypertension; E78.5 Hyperlipidemia, unspecified; H02.63 Xanthelasma of right eye, unspecified eyelid; H02.66 Xanthelasma of left eye, unspecified eyelid; K21.9 Gastro-esophageal reflux disease without esophagitis; R12 Heartburn; R94.30 Abnormal result of cardiovascular function study, unspecified; R94.31 Abnormal electrocardiogram [ECG] [EKG]; F17.200 Nicotine dependence, unspecified, uncomplicated; Z95.5 Presence of coronary angioplasty implant and graft
CPT/HCPCS: 93931

== ENCOUNTER 2023-10-08 12:51 | Outpatient (RCR) | payer OTHER, SELFPAY | END 2023-11-24 14:00 | disposition home or self-care (01) | LOC: PT 12:51 | PROVIDERS: Visit Provider Nurse Practitioner Family | DX: I25.10 Atherosclerotic heart disease of native coronary artery without angina pectoris (principal); Z95.5 Presence of coronary angioplasty implant and graft | CPT/HCPCS: 93798 ==